=== PATIENT | male | born 1945 | race Caucasian/White ===

== ENCOUNTER → 2016-12-12 | Outpatient (CLI) | payer MEDICARE ==
[~2016-12-12] MED LIST: ACET30TAB PO; LOSA50TA21 PO; MULT1TAB9 PO; TYLE500T78 PO
== END ==
LOC: M ONCR 13:09
PROVIDERS: ATTEND Radiology Radiation Oncology
DX: C02.9 Malignant neoplasm of tongue, unspecified (principal)

== ENCOUNTER 2016-12-25 08:27 | Outpatient (RCR) | payer MEDICARE ==
--- NOTE | 2017-01-09 09:14 | RADONC ---
RADIATION ONCOLOGY PROGRESS NOTE DATE: 01/07/2017 CHART NUMBER: [id number] Mr. Schroeder is presently at a dose of 800 cGy to his oral tongue and is tolerating treatments quite well at this point with no complaints related to his radiation therapy. He is having no difficulty swallowing or discomfort. REVIEW OF SYSTEMS: The patient's review of systems is noncontributory. He denies nausea, vomiting, fevers, chills, night sweats, diplopia, headaches, anxiety or depression, anorexia, weight loss, visual disturbances, chest pain, urinary or bowel difficulties, bone pain or neurological problems. PHYSICAL EXAMINATION: The patient's skin is in good condition with no evidence of radiation change present. His oral cavity shows no evidence of mucositis. The remainder of his physical exam remains unchanged. Mr. Schroeder she is tolerating treatments quite well and radiation will continue as scheduled.
--- NOTE | 2017-01-14 11:49 | RADONC ---
RADIATION ONCOLOGY PROGRESS NOTE DATE: 01/14/2017 CHART NUMBER: [id number] Mr. Schroeder is presently at a dose of 1800 cGy to his head and neck and is tolerating treatments fairly well at this point with no significant difficulties related to his radiation therapy other than some discomfort in the oral cavity. REVIEW OF SYSTEMS: The patient's review of systems is positive for some sensitivity of his oral cavity but is otherwise noncontributory. The patient's review of systems is noncontributory. Denies nausea, vomiting, fevers, chills, night sweats, diplopia, headaches, anxiety or depression, anorexia, weight loss, visual disturbances, chest pain, urinary or bowel difficulties, bone pain, or neurological problems. PHYSICAL EXAMINATION: The patient's skin is in excellent condition with no evidence of radiation change present. There is no moist or dry desquamation. His oral cavity is beginning to show some mild mucositis. His weight today, however is up to 176.8 pounds from 174.2 pounds 1 week ago. The remainder of his physical exam remains unchanged. Mr. Schroeder is tolerating treatments quite well and radiation will continue as scheduled.
== END 2017-01-15 ==
LOC: M ONCR 08:27
PROVIDERS: ATTEND Radiology Radiation Oncology
DX: C77.0 Secondary and unspecified malignant neoplasm of lymph nodes of head, face and neck (principal); C02.1 Malignant neoplasm of border of tongue

== ENCOUNTER → 2016-12-25 | Outpatient (CLI) | payer MEDICARE ==
--- NOTE | 2016-12-27 08:17 | RADONC ---
RADIATION ONCOLOGY SIMULATION NOTE DATE: 12/25/2016 CHART NUMBER: [id number]. Mr. Schroeder was taken to the CT scan for CT simulation of his head and neck field. CT was accomplished without difficulty or discomfort. Radiation treatment planning is underway and radiation treatments will begin subsequently. An immobilization device, including a mask, was created without difficulty or discomfort. It will be utilized throughout the course of treatment. I was physically present throughout the course of CT simulation. The patient has had an abscess and is presently on clindamycin antibiotics for the last 7 days. He has another week of antibiotics to go. We will reevaluate him prior to initiation of actual treatment.
== END ==
LOC: M RAD 08:09
PROVIDERS: ATTEND Radiology Radiation Oncology
DX: C77.0 Secondary and unspecified malignant neoplasm of lymph nodes of head, face and neck (principal); C02.1 Malignant neoplasm of border of tongue

== ENCOUNTER 2017-01-16 14:26 | Outpatient (RCR) | payer MEDICARE ==
--- NOTE | 2017-01-22 09:23 | RADONC ---
RADIATION ONCOLOGY PROGRESS NOTE DATE: 01/21/2017 CHART NUMBER: [id number]. Mr. Schroeder is presently at a dose of 2600 cGy to his oral cavity and is tolerating treatments quite well at this point with no significant difficulties related to his radiation therapy other than some discomfort in the oral cavity. REVIEW OF SYSTEMS: The patient's review of systems is positive for some oral cavity discomfort but is otherwise largely noncontributory. He denies nausea, vomiting, fevers, chills, night sweats, diplopia, headaches, anxiety or depression, anorexia, weight loss, visual disturbances, chest pain, urinary or bowel difficulties, bone pain or neurological problems. PHYSICAL EXAMINATION: The patient's oral cavity shows some mild mucositis present, but overall is in good condition. There is no evidence of nodularity or ulceration. The remainder of his physical exam remains unchanged. The patient is tolerating treatments quite well and radiation will continue as scheduled.
--- NOTE | 2017-01-28 12:42 | RADONC ---
RADIATION ONCOLOGY PROGRESS NOTE DATE: 01/28/2017 CHART NUMBER: [id number]. Mr. Schroeder is presently at a dose of 3600 cGy to his oral tongue and is tolerating treatments quite well at this point with no significant difficulties related to his radiation therapy. The patient is complaining today of flu like symptoms including fevers, chills, coughing, diarrhea, abdominal discomfort, some nausea. He does also have some oral cavity discomfort from radiation. REVIEW OF SYSTEMS: The patient's review of systems is positive for multiple flu-like symptoms including those listed above. It is otherwise noncontributory. He denies nausea, vomiting, fevers, chills, night sweats, diplopia, headaches, anxiety or depression, anorexia, weight loss, visual disturbances, chest pain, urinary or bowel difficulties, bone pain or neurological problems. PHYSICAL EXAMINATION: The patient's oral cavity shows some mild mucositis present. There is no evidence of moist or dry desquamation of the patient's skin region. The remainder of his physical exam remains unchanged. Mr. Schroeder is tolerating radiation quite well. Radiation will continue. I let him know that if he is feeling sick, he may stay home for a couple of days, if necessary, and it should not affect the treatment significantly.
--- NOTE | 2017-02-05 08:15 | RADONC ---
RADIATION ONCOLOGY PROGRESS NOTE DATE: 02/04/2017 CHART NUMBER: [id number]. PROGRESS NOTE: Mr. Schroeder is presently at a dose of 4600 cGy to his oral cavity and is tolerating treatments remarkably well with no significant difficulties related to his radiation therapy other than some change of taste and tenderness upon swallowing. He has been able to maintain his weight even without a feeding tube. REVIEW OF SYSTEMS: The patient's review of systems is positive for difference in his taste sensation as well as some discomfort upon swallowing, but is otherwise noncontributory. Denies nausea, vomiting, fevers, chills, night sweats, diplopia, headaches, anxiety or depression, anorexia, weight loss, visual disturbances, chest pain, urinary or bowel difficulties, bone pain, or neurological problems. PHYSICAL EXAMINATION: The patient's weight today is 173.2 pounds, down just 4/10 of a pound in the past week. His oral cavity shows some mild mucositis. The skin shows some tanning and erythema present but overall is in good condition with no evidence of moist or dry desquamation. The remainder of the physical exam remains unchanged. Mr. Schroeder is tolerating treatments quite well and radiation will continue as scheduled.
--- NOTE | 2017-02-11 10:56 | RADONC ---
RADIATION ONCOLOGY PROGRESS NOTE: DATE: 02/11/2017 CHART NO: [id number] Mr. Schroeder is presently at a dose of 5000 cGy to his head and neck and is tolerating treatments quite well at this point with no significant difficulties related to his radiation therapy other than some tenderness of the skin and the oral cavity. REVIEW OF SYSTEMS: The patient's review of systems is positive for some skin tenderness in oral cavity tenderness but is otherwise noncontributory. He denies nausea, vomiting, fevers, chills, night sweats, diplopia, headaches, anxiety or depression, anorexia, weight loss, visual disturbances, chest pain, urinary or bowel difficulties, bone pain, or neurological problems. PHYSICAL EXAMINATION: The patient is doing quite well at this point. The skin over the treated field shows some erythema and tanning present but overall is in good condition with no evidence of moist or dry desquamation. The oral cavity is in excellent condition with just some mild mucositis. He is weight today is 171.6 pounds. That is down a total of 1-1/2 pounds since last week but is actually up 4.6 pounds since the time of consultation. His is encouraging him to continue to eat and indeed he has been swallowing. The remainder of his physical exam remains unchanged. Mr. Schroeder is tolerating treatments quite well and radiation will continue as scheduled.
== END 2017-02-15 ==
LOC: M ONCR 14:26
PROVIDERS: ATTEND Radiology Radiation Oncology
DX: C02.1 Malignant neoplasm of border of tongue (principal); C77.0 Secondary and unspecified malignant neoplasm of lymph nodes of head, face and neck

== ENCOUNTER 2017-02-18 08:48 | Outpatient (RCR) | payer MEDICARE ==
--- NOTE | 2017-02-18 15:44 | RADONC ---
RADIATION ONCOLOGY PROGRESS NOTE DATE: 02/18/2017 CHART NUMBER: [id number] Mr. Schroeder is presently at a dose of 6000 cGy to his head and neck and is tolerating treatments remarkably well at this point with no significant difficulties related to his radiation therapy. The patient is swallowing. He has some change in his taste sensation. He is having no significant discomfort. The patient's review of systems is positive for taste sensation changes but is otherwise largely noncontributory. He denies nausea, vomiting, fevers, chills, night sweats, diplopia, headaches, anxiety or depression, anorexia, weight loss, visual disturbances, chest pain, urinary or bowel difficulties, bone pain, or neurological problems. PHYSICAL EXAMINATION: The patient's skin is in good condition with no evidence of moist or dry desquamation. The patient's oral cavity shows some mild mucositis. His weight today is 171.4 pounds still up for 1/2 pound since time of consultation and stable since last week. The remainder of his physical exam remains unchanged. Mr. Schroeder is tolerating treatments quite well and radiation will continue as scheduled.
--- NOTE | 2017-02-21 12:14 | RADONC ---
RADIATION ONCOLOGY TREATMENT SUMMARY DATE: 02/21/2017 CHART NUMBER: [id number] DIAGNOSIS: Oral tongue cancer. STAGE: UZIEL, [id number]. ECOG PERFORMANCE STATUS: 1 TREATMENT SUMMARY: Mr. 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 We treated the patient to his oral tongue for a total dose of 6660 cGy delivered in 33 fractions of 200 cGy each over 47 elapsed days from 01/02/2017 through 02/18/2017. The patient's oral tongue was treated on the linear accelerator utilizing a 6 MV photon beam via IMRT/IGRT. The left neck received a total dose of 6000 cGy delivered in 30 fractions of 200 cGy each, and the right noninvolved neck received a dose of 5000 cGy delivered in 25 fractions of 200 cGy each. All treatments were delivered via IMRT/IGRT. Mr. Schroeder tolerated his treatments exceedingly well. He was able to maintain his weight and, indeed, gained weight from time of consultation while on radiation treatments. He did not have a feeding tube placed. Once again, without a feeding tube, the patient gained a total of 4.5 pounds throughout the course of therapy. He was able to complete radiation as prescribed without interruption. I have scheduled the patient to see me again in 1 month for further followup. He will also continue to be followed by his other physicians as well. He is scheduled for monthly examination by Dr. Correa. cc: Jet Valiente, DO Erik Forte MD
== END 2017-03-17 ==
LOC: M ONCR 08:48
PROVIDERS: ATTEND Radiology Radiation Oncology
DX: C02.1 Malignant neoplasm of border of tongue (principal); C77.0 Secondary and unspecified malignant neoplasm of lymph nodes of head, face and neck

== ENCOUNTER → 2017-03-27 | Outpatient (CLI) | payer MEDICARE ==
--- NOTE | 2017-03-29 06:23 | RADONC ---
RADIATION ONCOLOGY FOLLOWUP NOTE DATE: 03/27/2017 CHART NUMBER: [id number]. DIAGNOSIS: Oral tongue cancer. STAGE: UZIEL, [id number]. ECOG PERFORMANCE STATUS: Zero. FOLLOWUP NOTE: Mr. 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 The patient presents today reporting that he is doing exceedingly well with no complaints at this time related to his radiation therapy or disease. He is having no mouth pain. He has no pain upon swallowing. REVIEW OF SYSTEMS: The patient's review of systems is noncontributory. Denies nausea, vomiting, fevers, chills, night sweats, diplopia, headaches, anxiety or depression, anorexia, weight loss, visual disturbances, chest pain, urinary or bowel difficulties, bone pain, or neurological problems. PHYSICAL EXAMINATION: The patients is a well-developed, well-nourished, white male in no acute distress. HEENT exam is normocephalic, atraumatic. Extraocular movements are intact. Oral cavity examination reveals no lesions, nodularity, evidence of residual or recurrent disease. There is no palpable cervical, supraclavicular, infraclavicular, axillary or inguinal lymphadenopathy present. His lungs are clear to auscultation and percussion. ASSESSMENT: The patient is clinically SHAILESH at this time. He is being seen by Dr. Correa every 4 weeks for laryngoscopic evaluation and full oral cavity examination. He is also being seen by Dr. Trevino on a monthly basis. He has just seen Dr. Correa, who reported no evidence of recurrent disease either. In light of the fact that he is being followed so closely by his head and neck physician, I have discharged him from our followup except on an as needed basis. cc: SANDRA Looney DO Norman Weir, MD
== END ==
LOC: M ONCR 11:05
PROVIDERS: ATTEND Radiology Radiation Oncology
DX: C02.1 Malignant neoplasm of border of tongue (principal); C77.0 Secondary and unspecified malignant neoplasm of lymph nodes of head, face and neck

== ENCOUNTER → 2017-06-25 | Outpatient (REF) | payer MEDICARE ==
[~2017-06-25] MED LIST changes: -LOSA50TA21 PO; +LOSA50TA5 PO
[2017-06-25 21:19] LABS: MEAN CORPUSCULAR HEMOGLOBIN 33.5 pg (27.0-33.0); MEAN CORPUSCULAR HGB CONC 34.8 g/dl (32.0-36.5); MEAN CORPUSCULAR VOLUME 96.2 fl (80.0-96.0); RED CELL DISTRIBUTION WIDTH 12.4 % (11.5-14.5); WHITE BLOOD COUNT 3.7 K/mm3 (4.0-10.0)
[2017-06-25 21:53] LABS: ALBUMIN 3.9 GM/DL (3.2-5.2); ALKALINE PHOSPHATASE 73 U/L (45-117); ALT/SGPT 25 U/L (12-78); ANION GAP 6 MEQ/L (8-16); AST/SGOT 19 U/L (15-37); BILIRUBIN,TOTAL 0.6 MG/DL (0.2-1.0); BLOOD UREA NITROGEN 35 MG/DL (7-18); CARBON DIOXIDE LEVEL 29 MEQ/L (21-32); CHLORIDE LEVEL 103 MEQ/L (98-107); CREATININE FOR GFR 1.53 MG/DL (0.70-1.30); GLOMERULAR FILTRATION RATE 47.7 (>42); GLUCOSE, FASTING 79 MG/DL (83-110); POTASSIUM SERUM 3.9 MEQ/L (3.5-5.1); SODIUM LEVEL 138 MEQ/L (136-145); TOTAL PROTEIN 6.9 GM/DL (6.4-8.2)
== END ==
LOC: M LAB REF 17:38
PROVIDERS: ATTEND Surgery
DX: M27.2 Inflammatory conditions of jaws (principal); I10 Essential (primary) hypertension; Z79.899 Other long term (current) drug therapy

== ENCOUNTER → 2017-07-02 | Outpatient (REF) | payer MEDICARE | LOC: M LAB REF 16:06 | PROVIDERS: ATTEND Surgery | DX: M86.10 Other acute osteomyelitis, unspecified site (principal) ==

== ENCOUNTER 2018-01-29 08:16 | Outpatient (RCR) | payer MEDICARE | END 2018-02-15 | LOC: M PT 08:16 | DX: Z51.89 Encounter for other specified aftercare (principal); I89.0 Lymphedema, not elsewhere classified | CPT/HCPCS: 97140 ==

== ENCOUNTER 2018-02-20 09:03 | Outpatient (RCR) | payer MEDICARE | END 2018-03-17 | LOC: M PT 09:03 | DX: Z51.89 Encounter for other specified aftercare (principal); I89.0 Lymphedema, not elsewhere classified | CPT/HCPCS: 97140 ==

== ENCOUNTER → 2018-04-04 | Outpatient (CLI) | payer MEDICARE ==
[~2018-04-04] MED LIST changes: -ACET30TAB PO; +ISOVUE-370 76% 100ML VIAL (Q9967) As Ordered; -LOSA50TA5 PO; -MULT1TAB9 PO; -TYLE500T78 PO
== END ==
LOC: M RAD 13:10
DX: C02.2 Malignant neoplasm of ventral surface of tongue (principal)
CPT/HCPCS: Q9967

== ENCOUNTER → 2018-04-29 | Day surgery (SDC) | payer MEDICARE ==
[~2018-04-29] MED LIST changes: +GLYCOPYRROLATE INJ 0.2 MG/ML 2 ML VIAL As Ordered; -ISOVUE-370 76% 100ML VIAL (Q9967) As Ordered; +LR 1,000 ML IV; +MIDAZOLAM INJ 2 MG/2 ML VIAL (J2250) As Ordered; +ONDANSETRON 4MG/2ML VIAL (J2405) IV; +PROPOFOL 200 MG/20 ML VIAL As Ordered; +ROCURONIUM BROMIDE 50 MG/5 ML VIAL As Ordered; +SUCCINYLCHOLINE 100 MG/5 ML SYRINGE (J0330) As Ordered; +SUGAMMADEX SODIUM 500 MG/5 ML VIAL (BRIDION) As Ordered; +dexameTHASONE 4 MG/ML 1ML VIAL (J1100) As Ordered; +fentaNYL 100 MCG/2 ML INJECTION (J3010) As Ordered; +fentaNYL 100 MCG/2 ML INJECTION (J3010) IV
[2018-04-29 08:20] LABS: ANION GAP 8 MEQ/L (8-16); BLOOD UREA NITROGEN 42 MG/DL (7-18); CALCIUM LEVEL 9.3 MG/DL (8.8-10.2); CARBON DIOXIDE LEVEL 30 MEQ/L (21-32); CHLORIDE LEVEL 99 MEQ/L (98-107); CREATININE FOR GFR 1.64 MG/DL (0.70-1.30); GLOMERULAR FILTRATION RATE 43.9 (>42); GLUCOSE, FASTING 95 MG/DL (70-100); POTASSIUM SERUM 3.8 MEQ/L (3.5-5.1); SODIUM LEVEL 137 MEQ/L (136-145)
[2018-04-29] MEDS: CETACAINE SPRAY 5GM As Ordered (09:20)
[2018-04-29] MEDS: fentaNYL 100 MCG/2 ML INJECTION (J3010) IV ×4 (10:02→10:19)
[2018-04-29] MEDS: NORCO, ANEXSIA 5/325MG TABLET (HYDROcodone/ACETAMINOPHEN) PO ×2 (11:15→11:59)
== END | disposition home or self-care (01) ==
LOC: M SDC 07:34
DX: C02.2 Malignant neoplasm of ventral surface of tongue (principal); I12.9 Hypertensive chronic kidney disease with stage 1 through stage 4 chronic kidney disease, or unspecified chronic kidney disease; N18.3 Chronic kidney disease, stage 3 (moderate); F17.211 Nicotine dependence, cigarettes, in remission; Z79.899 Other long term (current) drug therapy; Z92.3 Personal history of irradiation; Z88.8 Allergy status to other drugs, medicaments and biological substances
CPT/HCPCS: 31536

== ENCOUNTER → 2018-05-06 | Outpatient (REF) | payer MEDICARE | LOC: M LAB REF 12:47 | DX: M79.2 Neuralgia and neuritis, unspecified (principal); B37.89 Other sites of candidiasis | CPT/HCPCS: 87070 ==

== ENCOUNTER 2018-05-31 04:09 | Inpatient (IN) | payer MEDICARE ==
[2018-05-31 04:46] LABS: BASO % 0.2 % (0.0-1.0); EOS # 0.1 10^3/uL (0.0-0.50); EOS % 0.6 % (0.0-3.0); HEMATOCRIT 32.9 % (42.0-52.0); HEMOGLOBIN 11.1 g/dl (13.5-17.5); LYMPH # 0.9 10^3/uL (1.5-4.5); LYMPH % 9.9 % (24.0-44.0); MEAN CORPUSCULAR HEMOGLOBIN 31.6 pg (27.0-33.0); MEAN CORPUSCULAR HGB CONC 33.7 g/dl (32.0-36.5); MEAN CORPUSCULAR VOLUME 93.7 fl (80.0-96.0); MONO # 0.6 10^3/uL (0.0-0.8); MONO % 7.4 % (0.0-5.0); NEUTROPHILS # 6.9 10^3/uL (1.8-7.7); NEUTROPHILS % 79.9 % (36.0-66.0); PLATELET COUNT, AUTOMATED 243 10^3/uL (150-450); RED BLOOD COUNT 3.51 10^6/uL (4.30-6.10); RED CELL DISTRIBUTION WIDTH 13.1 % (11.5-14.5); WHITE BLOOD COUNT 8.6 10^3/uL (4.0-10.0)
[2018-05-31 05:06] LABS: ANION GAP 8 MEQ/L (8-16); BLOOD UREA NITROGEN 31 MG/DL (7-18); CALCIUM LEVEL 8.3 MG/DL (8.8-10.2); CARBON DIOXIDE LEVEL 26 MEQ/L (21-32); CHLORIDE LEVEL 106 MEQ/L (98-107); CREATININE FOR GFR 1.07 MG/DL (0.70-1.30); GLOMERULAR FILTRATION RATE > 60.0 (>42); GLUCOSE, FASTING 86 MG/DL (70-100); SODIUM LEVEL 140 MEQ/L (136-145)
[2018-05-31] MEDS ORDERED: ISOVUE-370 76% 100ML VIAL (Q9967) As Ordered (05:20)
[2018-05-31] MEDS: ONDANSETRON 4MG/2ML VIAL (J2405) IV (05:30)
[2018-05-31] MEDS: MORPHINE 4 MG/ML 1ML VIAL/SYRINGE (J2270) IV ×2 (05:38→07:19)
[2018-05-31] MEDS ORDERED: DEXTROSE 50% 50 ML SYRINGE IV (07:15)
[2018-05-31] MEDS ORDERED: GLUCAGON FOR INJ 1 MG VIAL (J1610) SC (07:15)
[2018-05-31] MEDS ORDERED: GLUCOSE 4 GM CHEW TABLET PO (07:15)
[2018-05-31] MEDS ORDERED: ACETAMINOPHEN TAB 650MG DOSE (2X325MG) PO (07:15)
[2018-05-31] MEDS: dexameTHASONE 20 MG/5 ML VIAL (J1100) IV ×3 (08:01→17:08)
[2018-05-31] MEDS: AMPICILLIN SOD/SULBACTAM SOD 3 GM in D5W MINI-BAG PLUS 100 ML IV ×4 (08:01→22:13)
[2018-05-31] MEDS: NS 1,000 ML IV (08:02)
[2018-05-31] MEDS: PANTOPRAZOLE 40MG INJ (PROTONIX) (C9113) IV (10:47)
[2018-05-31] MEDS: ENOXAPARIN 40 MG/0.4 ML SYRINGE (J1650) SC (10:47)
[2018-05-31 18:18] LABS: BEDSIDE GLUCOSE 133 MG/DL (83-110)
[2018-06-01] MEDS: dexameTHASONE 20 MG/5 ML VIAL (J1100) IV ×4 (00:56→17:12)
[2018-06-01 00:57] LABS: BEDSIDE GLUCOSE 136 MG/DL (83-110)
[2018-06-01 04:46] LABS: HEMATOCRIT 32.2 % (42.0-52.0); MEAN CORPUSCULAR HEMOGLOBIN 31.2 pg (27.0-33.0); MEAN CORPUSCULAR HGB CONC 34.2 g/dl (32.0-36.5); MEAN CORPUSCULAR VOLUME 91.2 fl (80.0-96.0); PLATELET COUNT, AUTOMATED 246 10^3/uL (150-450); RED BLOOD COUNT 3.53 10^6/uL (4.30-6.10); RED CELL DISTRIBUTION WIDTH 13.1 % (11.5-14.5); WHITE BLOOD COUNT 8.2 10^3/uL (4.0-10.0)
[2018-06-01 05:03] LABS: ANION GAP 7 MEQ/L (8-16); BLOOD UREA NITROGEN 28 MG/DL (7-18); CALCIUM LEVEL 8.3 MG/DL (8.8-10.2); CARBON DIOXIDE LEVEL 27 MEQ/L (21-32); CHLORIDE LEVEL 103 MEQ/L (98-107); GLOMERULAR FILTRATION RATE > 60.0 (>42); GLUCOSE, FASTING 112 MG/DL (70-100); POTASSIUM SERUM 4.4 MEQ/L (3.5-5.1); SODIUM LEVEL 137 MEQ/L (136-145)
[2018-06-01] MEDS: NS 1,000 ML IV (05:56)
[2018-06-01] MEDS: AMPICILLIN SOD/SULBACTAM SOD 3 GM in D5W MINI-BAG PLUS 100 ML IV ×4 (05:56→21:48)
[2018-06-01] MEDS ORDERED: ACETAMINOPHEN 325 MG/10.15 ML UDC GT (08:45)
[2018-06-01] MEDS ORDERED: LIDOCAINE VISCOUS 2% SOLN 15ML UDC SS (08:45)
[2018-06-01] MEDS: PANTOPRAZOLE 40MG INJ (PROTONIX) (C9113) IV (09:02)
[2018-06-01] MEDS: ENOXAPARIN 40 MG/0.4 ML SYRINGE (J1650) SC (09:03)
[2018-06-01] MEDS: NORCO, ANEXSIA 5/325MG TABLET (HYDROcodone/ACETAMINOPHEN) PO ×4 (09:03→23:15)
[2018-06-01] MEDS: LIDOCAINE VISCOUS 2% SOLN 15ML UDC PO (09:18)
[2018-06-01] MEDS: METOCLOPRAMIDE INJ 10MG/2ML VIAL (J2765) IV (11:03)
[2018-06-01] MEDS: MIRALAX *UNIT DOSE* 17GM PACKET PO (11:10)
[2018-06-01] MEDS: ALPRAZolam 0.25 MG TAB PO ×2 (11:35→21:49)
[2018-06-01 12:26] LABS: BEDSIDE GLUCOSE 143 MG/DL (83-110)
[2018-06-01 17:21] LABS: BEDSIDE GLUCOSE 121 MG/DL (83-110)
[2018-06-02] MEDS: dexameTHASONE 20 MG/5 ML VIAL (J1100) IV ×4 (00:14→18:21)
[2018-06-02 00:19] LABS: BEDSIDE GLUCOSE 125 MG/DL (83-110)
[2018-06-02] MEDS: AMPICILLIN SOD/SULBACTAM SOD 3 GM in D5W MINI-BAG PLUS 100 ML IV ×4 (03:21→21:56)
[2018-06-02 04:39] LABS: HEMATOCRIT 30.4 % (42.0-52.0); HEMOGLOBIN 10.5 g/dl (13.5-17.5); MEAN CORPUSCULAR HEMOGLOBIN 31.6 pg (27.0-33.0); MEAN CORPUSCULAR HGB CONC 34.5 g/dl (32.0-36.5); MEAN CORPUSCULAR VOLUME 91.6 fl (80.0-96.0); PLATELET COUNT, AUTOMATED 241 10^3/uL (150-450); RED BLOOD COUNT 3.32 10^6/uL (4.30-6.10); RED CELL DISTRIBUTION WIDTH 13.3 % (11.5-14.5)
[2018-06-02 04:53] LABS: ANION GAP 8 MEQ/L (8-16); BLOOD UREA NITROGEN 38 MG/DL (7-18); CALCIUM LEVEL 7.7 MG/DL (8.8-10.2); CARBON DIOXIDE LEVEL 27 MEQ/L (21-32); CHLORIDE LEVEL 105 MEQ/L (98-107); CREATININE FOR GFR 1.11 MG/DL (0.70-1.30); GLOMERULAR FILTRATION RATE > 60.0 (>42); GLUCOSE, FASTING 138 MG/DL (70-100); POTASSIUM SERUM 4.2 MEQ/L (3.5-5.1); SODIUM LEVEL 140 MEQ/L (136-145)
[2018-06-02] MEDS: MIRALAX *UNIT DOSE* 17GM PACKET PO (08:41)
[2018-06-02] MEDS: ENOXAPARIN 40 MG/0.4 ML SYRINGE (J1650) SC (08:41)
[2018-06-02] MEDS: PANTOPRAZOLE 40MG INJ (PROTONIX) (C9113) IV (08:41)
[2018-06-02 13:04] LABS: BEDSIDE GLUCOSE 168 MG/DL (83-110)
[2018-06-02] MEDS: ALPRAZolam 0.25 MG TAB PO ×2 (13:27→21:55)
[2018-06-02] MEDS: NORCO, ANEXSIA 5/325MG TABLET (HYDROcodone/ACETAMINOPHEN) PO ×2 (14:56→21:56)
[2018-06-02 18:33] LABS: BEDSIDE GLUCOSE 150 MG/DL (83-110)
[2018-06-03] MEDS: dexameTHASONE 20 MG/5 ML VIAL (J1100) IV ×4 (00:29→17:17)
[2018-06-03 03:29] LABS: BEDSIDE GLUCOSE 111 MG/DL (83-110)
[2018-06-03 04:45] LABS: HEMATOCRIT 31.3 % (42.0-52.0); HEMOGLOBIN 10.8 g/dl (13.5-17.5); MEAN CORPUSCULAR HGB CONC 34.5 g/dl (32.0-36.5); MEAN CORPUSCULAR VOLUME 92.6 fl (80.0-96.0); PLATELET COUNT, AUTOMATED 246 10^3/uL (150-450); RED BLOOD COUNT 3.38 10^6/uL (4.30-6.10); RED CELL DISTRIBUTION WIDTH 13.5 % (11.5-14.5); WHITE BLOOD COUNT 11.7 10^3/uL (4.0-10.0)
[2018-06-03 05:00] LABS: ANION GAP 6 MEQ/L (8-16); BLOOD UREA NITROGEN 43 MG/DL (7-18); CARBON DIOXIDE LEVEL 30 MEQ/L (21-32); CHLORIDE LEVEL 105 MEQ/L (98-107); CREATININE FOR GFR 1.18 MG/DL (0.70-1.30); GLOMERULAR FILTRATION RATE > 60.0 (>42); GLUCOSE, FASTING 115 MG/DL (70-100); POTASSIUM SERUM 4.4 MEQ/L (3.5-5.1); SODIUM LEVEL 141 MEQ/L (136-145)
[2018-06-03] MEDS: AMPICILLIN SOD/SULBACTAM SOD 3 GM in D5W MINI-BAG PLUS 100 ML IV ×4 (05:08→21:29)
[2018-06-03] MEDS: ENOXAPARIN 40 MG/0.4 ML SYRINGE (J1650) SC (08:08)
[2018-06-03] MEDS: PANTOPRAZOLE 40MG INJ (PROTONIX) (C9113) IV (08:08)
[2018-06-03] MEDS: MIRALAX *UNIT DOSE* 17GM PACKET PO (08:09)
[2018-06-03] MEDS: NORCO, ANEXSIA 5/325MG TABLET (HYDROcodone/ACETAMINOPHEN) PO ×2 (08:09→21:30)
[2018-06-03] MEDS: SENNA 8.6 MG TAB (SENOKOT) PO (09:42)
[2018-06-03] MEDS: DRONABINOL 2.5 MG CAP (MARINOL) PO ×3 (11:59→21:28)
[2018-06-03 13:35] LABS: BEDSIDE GLUCOSE 177 MG/DL (83-110)
[2018-06-03 17:30] LABS: BEDSIDE GLUCOSE 140 MG/DL (83-110)
[2018-06-04 05:01] LABS: HEMATOCRIT 32.4 % (42.0-52.0); HEMOGLOBIN 10.9 g/dl (13.5-17.5); MEAN CORPUSCULAR HEMOGLOBIN 31.6 pg (27.0-33.0); MEAN CORPUSCULAR HGB CONC 33.6 g/dl (32.0-36.5); MEAN CORPUSCULAR VOLUME 93.9 fl (80.0-96.0); PLATELET COUNT, AUTOMATED 233 10^3/uL (150-450); RED BLOOD COUNT 3.45 10^6/uL (4.30-6.10); RED CELL DISTRIBUTION WIDTH 13.7 % (11.5-14.5); WHITE BLOOD COUNT 10.9 10^3/uL (4.0-10.0)
[2018-06-04 05:16] LABS: ANION GAP 4 MEQ/L (8-16); BLOOD UREA NITROGEN 42 MG/DL (7-18); C REACTIVE PROTEIN QUANTITATIV 0.33 MG/DL (0.00-0.30); CALCIUM LEVEL 8.1 MG/DL (8.8-10.2); CARBON DIOXIDE LEVEL 31 MEQ/L (21-32); CHLORIDE LEVEL 106 MEQ/L (98-107); CREATININE FOR GFR 1.15 MG/DL (0.70-1.30); GLOMERULAR FILTRATION RATE > 60.0 (>42); GLUCOSE, FASTING 93 MG/DL (70-100); POTASSIUM SERUM 4.2 MEQ/L (3.5-5.1); SODIUM LEVEL 141 MEQ/L (136-145)
[2018-06-04] MEDS: AMPICILLIN SOD/SULBACTAM SOD 3 GM in D5W MINI-BAG PLUS 100 ML IV ×4 (05:35→21:00)
[2018-06-04] MEDS: dexameTHASONE 20 MG/5 ML VIAL (J1100) IV ×2 (05:35→17:30)
[2018-06-04] MEDS: ENOXAPARIN 40 MG/0.4 ML SYRINGE (J1650) SC (08:12)
[2018-06-04] MEDS: DRONABINOL 2.5 MG CAP (MARINOL) PO ×4 (08:12→20:55)
[2018-06-04] MEDS: PANTOPRAZOLE 40MG INJ (PROTONIX) (C9113) IV (08:12)
[2018-06-04] MEDS: MIRALAX *UNIT DOSE* 17GM PACKET PO (08:12)
[2018-06-04] MEDS: ALPRAZolam 0.25 MG TAB PO ×2 (16:35→20:55)
[2018-06-04] MEDS: NORCO, ANEXSIA 5/325MG TABLET (HYDROcodone/ACETAMINOPHEN) PO (20:56)
[2018-06-05] MEDS: AMPICILLIN SOD/SULBACTAM SOD 3 GM in D5W MINI-BAG PLUS 100 ML IV (04:25)
[2018-06-05 05:07] LABS: HEMATOCRIT 30.2 % (42.0-52.0); HEMOGLOBIN 10.3 g/dl (13.5-17.5); MEAN CORPUSCULAR HEMOGLOBIN 31.4 pg (27.0-33.0); MEAN CORPUSCULAR HGB CONC 34.1 g/dl (32.0-36.5); MEAN CORPUSCULAR VOLUME 92.1 fl (80.0-96.0); PLATELET COUNT, AUTOMATED 224 10^3/uL (150-450); RED BLOOD COUNT 3.28 10^6/uL (4.30-6.10); RED CELL DISTRIBUTION WIDTH 13.7 % (11.5-14.5); WHITE BLOOD COUNT 9.3 10^3/uL (4.0-10.0)
[2018-06-05 05:23] LABS: ANION GAP 4 MEQ/L (8-16); BLOOD UREA NITROGEN 40 MG/DL (7-18); C REACTIVE PROTEIN QUANTITATIV < 0.30 MG/DL (0.00-0.30); CALCIUM LEVEL 7.9 MG/DL (8.8-10.2); CARBON DIOXIDE LEVEL 28 MEQ/L (21-32); CHLORIDE LEVEL 108 MEQ/L (98-107); GLOMERULAR FILTRATION RATE > 60.0 (>42); GLUCOSE, FASTING 101 MG/DL (70-100); POTASSIUM SERUM 4.3 MEQ/L (3.5-5.1); SODIUM LEVEL 140 MEQ/L (136-145)
[2018-06-05 05:26] LABS: ESTIMATED AVERAGE GLUCOSE 111 MG/DL (60-110); HEMOGLOBIN A1c 5.5 %
[2018-06-05] MEDS: dexameTHASONE 20 MG/5 ML VIAL (J1100) IV (06:00)
== END 2018-06-05 06:45 | disposition short-term general hospital (02) | DRG 155 ==
LOC: M ED 04:09 → M ED INP 07:09 → M ICU 13:05
DX: K11.22 Acute recurrent sialoadenitis (principal); E46 Unspecified protein-calorie malnutrition; L03.211 Cellulitis of face; L03.221 Cellulitis of neck; F41.9 Anxiety disorder, unspecified; Z85.810 Personal history of malignant neoplasm of tongue; Z92.21 Personal history of antineoplastic chemotherapy; Z92.3 Personal history of irradiation; D63.8 Anemia in other chronic diseases classified elsewhere; K21.9 Gastro-esophageal reflux disease without esophagitis; Z87.891 Personal history of nicotine dependence; Z79.899 Other long term (current) drug therapy; Z88.8 Allergy status to other drugs, medicaments and biological substances; Z68.21 Body mass index [BMI] 21.0-21.9, adult

== ENCOUNTER 2018-06-07 17:41 | Inpatient (IN) | payer MEDICARE ==
[~2018-06-07 17:41] MED LIST changes: +ACETAMINOPHEN 325 MG/10.15 ML UDC GT; -GLYCOPYRROLATE INJ 0.2 MG/ML 2 ML VIAL As Ordered; +LIDOCAINE VISCOUS 2% SOLN 15ML UDC SS; -LR 1,000 ML IV; +METOCLOPRAMIDE INJ 10MG/2ML VIAL (J2765) IV; -MIDAZOLAM INJ 2 MG/2 ML VIAL (J2250) As Ordered; -PROPOFOL 200 MG/20 ML VIAL As Ordered; -ROCURONIUM BROMIDE 50 MG/5 ML VIAL As Ordered; -SUCCINYLCHOLINE 100 MG/5 ML SYRINGE (J0330) As Ordered; -SUGAMMADEX SODIUM 500 MG/5 ML VIAL (BRIDION) As Ordered; -dexameTHASONE 4 MG/ML 1ML VIAL (J1100) As Ordered; -fentaNYL 100 MCG/2 ML INJECTION (J3010) As Ordered; -fentaNYL 100 MCG/2 ML INJECTION (J3010) IV
[2018-06-07] MEDS: DRONABINOL 2.5 MG CAP (MARINOL) PEG (18:00)
[2018-06-07 18:28] LABS: BASO % 0.1 % (0.0-1.0); HEMATOCRIT 33.4 % (42.0-52.0); HEMOGLOBIN 11.4 g/dl (13.5-17.5); LYMPH # 0.3 10^3/uL (1.5-4.5); LYMPH % 2.2 % (24.0-44.0); MEAN CORPUSCULAR HEMOGLOBIN 32.3 pg (27.0-33.0); MEAN CORPUSCULAR HGB CONC 34.1 g/dl (32.0-36.5); MEAN CORPUSCULAR VOLUME 94.6 fl (80.0-96.0); MONO # 0.5 10^3/uL (0.0-0.8); MONO % 3.4 % (0.0-5.0); NEUTROPHILS # 13.1 10^3/uL (1.8-7.7); NEUTROPHILS % 93.3 % (36.0-66.0); PLATELET COUNT, AUTOMATED 213 10^3/uL (150-450); RED BLOOD COUNT 3.53 10^6/uL (4.30-6.10); RED CELL DISTRIBUTION WIDTH 13.8 % (11.5-14.5)
[2018-06-07 18:41] LABS: ALBUMIN 2.5 GM/DL (3.2-5.2); ALBUMIN/GLOBULIN RATIO 0.89 (1.00-1.93); ALKALINE PHOSPHATASE 62 U/L (45-117); ALT/SGPT 71 U/L (12-78); ANION GAP 9 MEQ/L (8-16); AST/SGOT 24 U/L (7-37); BILIRUBIN,TOTAL 0.8 MG/DL (0.2-1.0); BLOOD UREA NITROGEN 27 MG/DL (7-18); C REACTIVE PROTEIN QUANTITATIV < 0.30 MG/DL (0.00-0.30); CALCIUM LEVEL 7.7 MG/DL (8.8-10.2); CARBON DIOXIDE LEVEL 24 MEQ/L (21-32); CHLORIDE LEVEL 107 MEQ/L (98-107); CREATININE FOR GFR 0.99 MG/DL (0.70-1.30); GLOMERULAR FILTRATION RATE > 60.0 (>42); GLUCOSE, FASTING 96 MG/DL (70-100); POTASSIUM SERUM 4.4 MEQ/L (3.5-5.1); SODIUM LEVEL 140 MEQ/L (136-145); TOTAL PROTEIN 5.3 GM/DL (6.4-8.2)
[2018-06-07] MEDS: MORPHINE 4 MG/ML 1ML VIAL/SYRINGE (J2270) IV ×2 (19:01→23:16)
[2018-06-07] MEDS: AMPICILLIN SOD/SULBACTAM SOD 3 GM in D5W MINI-BAG PLUS 100 ML IV (21:40)
[2018-06-07] MEDS: SENOKOT S TAB PEG (21:40)
[2018-06-08] MEDS: AMPICILLIN SOD/SULBACTAM SOD 3 GM in D5W MINI-BAG PLUS 100 ML IV ×4 (02:43→20:52)
[2018-06-08] MEDS: MORPHINE 4 MG/ML 1ML VIAL/SYRINGE (J2270) IV ×2 (03:14→06:15)
[2018-06-08 06:19] LABS: HEMATOCRIT 33.4 % (42.0-52.0); HEMOGLOBIN 11.2 g/dl (13.5-17.5); MEAN CORPUSCULAR HEMOGLOBIN 31.5 pg (27.0-33.0); MEAN CORPUSCULAR HGB CONC 33.5 g/dl (32.0-36.5); MEAN CORPUSCULAR VOLUME 94.1 fl (80.0-96.0); PLATELET COUNT, AUTOMATED 196 10^3/uL (150-450); RED BLOOD COUNT 3.55 10^6/uL (4.30-6.10); RED CELL DISTRIBUTION WIDTH 13.8 % (11.5-14.5)
[2018-06-08 06:45] LABS: ANION GAP 10 MEQ/L (8-16); BLOOD UREA NITROGEN 28 MG/DL (7-18); C REACTIVE PROTEIN QUANTITATIV < 0.30 MG/DL (0.00-0.30); CALCIUM LEVEL 7.6 MG/DL (8.8-10.2); CARBON DIOXIDE LEVEL 23 MEQ/L (21-32); CHLORIDE LEVEL 109 MEQ/L (98-107); CREATININE FOR GFR 0.99 MG/DL (0.70-1.30); GLOMERULAR FILTRATION RATE > 60.0 (>42); GLUCOSE, FASTING 96 MG/DL (70-100); SODIUM LEVEL 142 MEQ/L (136-145)
[2018-06-08] MEDS: DRONABINOL 2.5 MG CAP (MARINOL) PEG ×3 (08:00→16:58)
[2018-06-08] MEDS: SENOKOT S TAB PEG ×2 (08:13→20:53)
[2018-06-08] MEDS: ALPRAZolam 0.25 MG TAB GT (08:13)
[2018-06-08] MEDS: predniSONE 50 MG TAB PEG (08:13)
[2018-06-08] MEDS: NORCO, ANEXSIA 5/325MG TABLET (HYDROcodone/ACETAMINOPHEN) GT (08:14)
[2018-06-08] MEDS: MIRALAX *UNIT DOSE* 17GM PACKET PEG (08:30)
[2018-06-08] MEDS: PANTOPRAZOLE 40MG INJ (PROTONIX) (C9113) IV (08:31)
[2018-06-08] MEDS: HEPARIN SOD (PORCINE) 5000 UNITS/ML VIAL SQ ×2 (08:31→20:54)
[2018-06-08] MEDS ORDERED: PILL CRUSHER/CUTTER 1 EACH XX (09:00)
[2018-06-08] MEDS: HYDROMORPHONE HCL 0.5 MG/ 0.5 ML SYRINGE (J1170 PER 1) IV ×4 (10:00→23:48)
[2018-06-09] MEDS: AMPICILLIN SOD/SULBACTAM SOD 3 GM in D5W MINI-BAG PLUS 100 ML IV ×4 (02:26→20:16)
[2018-06-09] MEDS: HYDROMORPHONE HCL 0.5 MG/ 0.5 ML SYRINGE (J1170 PER 1) IV ×2 (04:30→07:30)
[2018-06-09 05:56] LABS: HEMATOCRIT 32.2 % (42.0-52.0); MEAN CORPUSCULAR HEMOGLOBIN 31.8 pg (27.0-33.0); MEAN CORPUSCULAR HGB CONC 34.2 g/dl (32.0-36.5); MEAN CORPUSCULAR VOLUME 93.1 fl (80.0-96.0); PLATELET COUNT, AUTOMATED 185 10^3/uL (150-450); RED BLOOD COUNT 3.46 10^6/uL (4.30-6.10); RED CELL DISTRIBUTION WIDTH 13.8 % (11.5-14.5); WHITE BLOOD COUNT 10.3 10^3/uL (4.0-10.0)
[2018-06-09 06:13] LABS: ANION GAP 7 MEQ/L (8-16); BLOOD UREA NITROGEN 29 MG/DL (7-18); C REACTIVE PROTEIN QUANTITATIV 1.79 MG/DL (0.00-0.30); CALCIUM LEVEL 7.7 MG/DL (8.8-10.2); CARBON DIOXIDE LEVEL 28 MEQ/L (21-32); CHLORIDE LEVEL 105 MEQ/L (98-107); CREATININE FOR GFR 0.92 MG/DL (0.70-1.30); GLOMERULAR FILTRATION RATE > 60.0 (>42); GLUCOSE, FASTING 91 MG/DL (70-100); MAGNESIUM LEVEL 1.8 MG/DL (1.8-2.4); POTASSIUM SERUM 3.9 MEQ/L (3.5-5.1); SODIUM LEVEL 140 MEQ/L (136-145)
[2018-06-09] MEDS: DRONABINOL 2.5 MG CAP (MARINOL) PEG ×3 (08:00→17:31)
[2018-06-09] MEDS: predniSONE 50 MG TAB PEG (08:43)
[2018-06-09] MEDS: SENOKOT S TAB PEG ×2 (08:44→20:16)
[2018-06-09] MEDS: PANTOPRAZOLE 40MG INJ (PROTONIX) (C9113) IV (08:44)
[2018-06-09] MEDS: HEPARIN SOD (PORCINE) 5000 UNITS/ML VIAL SQ ×2 (08:44→20:17)
[2018-06-09] MEDS: MIRALAX *UNIT DOSE* 17GM PACKET PEG (08:44)
[2018-06-09] MEDS: NORCO, ANEXSIA 5/325MG TABLET (HYDROcodone/ACETAMINOPHEN) GT ×4 (09:31→22:47)
[2018-06-10] MEDS: AMPICILLIN SOD/SULBACTAM SOD 3 GM in D5W MINI-BAG PLUS 100 ML IV ×2 (02:33→08:19)
[2018-06-10] MEDS: NORCO, ANEXSIA 5/325MG TABLET (HYDROcodone/ACETAMINOPHEN) GT ×4 (02:58→15:25)
[2018-06-10 06:31] LABS: HEMATOCRIT 32.4 % (42.0-52.0); MEAN CORPUSCULAR HEMOGLOBIN 32.1 pg (27.0-33.0); MEAN CORPUSCULAR VOLUME 94.5 fl (80.0-96.0); PLATELET COUNT, AUTOMATED 171 10^3/uL (150-450); RED BLOOD COUNT 3.43 10^6/uL (4.30-6.10); RED CELL DISTRIBUTION WIDTH 13.9 % (11.5-14.5); WHITE BLOOD COUNT 9.1 10^3/uL (4.0-10.0)
[2018-06-10 06:48] LABS: ANION GAP 3 MEQ/L (8-16); BLOOD UREA NITROGEN 29 MG/DL (7-18); C REACTIVE PROTEIN QUANTITATIV 1.39 MG/DL (0.00-0.30); CALCIUM LEVEL 7.9 MG/DL (8.8-10.2); CARBON DIOXIDE LEVEL 30 MEQ/L (21-32); CHLORIDE LEVEL 105 MEQ/L (98-107); CREATININE FOR GFR 0.94 MG/DL (0.70-1.30); GLOMERULAR FILTRATION RATE > 60.0 (>42); GLUCOSE, FASTING 95 MG/DL (70-100); MAGNESIUM LEVEL 1.8 MG/DL (1.8-2.4); POTASSIUM SERUM 3.9 MEQ/L (3.5-5.1); SODIUM LEVEL 138 MEQ/L (136-145)
[2018-06-10] MEDS: predniSONE 50 MG TAB PEG (08:20)
[2018-06-10] MEDS: PANTOPRAZOLE 40MG INJ (PROTONIX) (C9113) IV (08:20)
[2018-06-10] MEDS: HEPARIN SOD (PORCINE) 5000 UNITS/ML VIAL SQ (08:20)
[2018-06-10] MEDS: SENOKOT S TAB PEG (08:20)
[2018-06-10] MEDS: MIRALAX *UNIT DOSE* 17GM PACKET PEG (08:21)
[2018-06-10] MEDS: DRONABINOL 2.5 MG CAP (MARINOL) PEG ×2 (08:21→11:55)
== END 2018-06-10 15:56 | disposition home or self-care (01) | DRG 155 ==
LOC: M MSPAV 17:41
DX: K11.21 Acute sialoadenitis (principal); E46 Unspecified protein-calorie malnutrition; L03.211 Cellulitis of face; L03.221 Cellulitis of neck; I82.C22 Chronic embolism and thrombosis of left internal jugular vein; Z68.21 Body mass index [BMI] 21.0-21.9, adult; Z85.810 Personal history of malignant neoplasm of tongue; Z79.899 Other long term (current) drug therapy; Z88.8 Allergy status to other drugs, medicaments and biological substances; K21.9 Gastro-esophageal reflux disease without esophagitis; Z93.1 Gastrostomy status; D64.9 Anemia, unspecified

== ENCOUNTER → 2018-06-12 | Outpatient (REF) | payer MEDICARE ==
[2018-06-12 13:26] LABS: C REACTIVE PROTEIN QUANTITATIV 4.02 MG/DL (0.00-0.30)
== END ==
LOC: M LAB REF 12:37
DX: C02.2 Malignant neoplasm of ventral surface of tongue (principal)
CPT/HCPCS: 86140

== ENCOUNTER 2018-06-28 06:06 | Emergency (ER) | payer MEDICARE ==
[2018-06-28 07:31] LABS: BASO % 0.3 % (0.0-1.0); EOS % 0.3 % (0.0-3.0); HEMATOCRIT 33.9 % (42.0-52.0); HEMOGLOBIN 11.1 g/dl (13.5-17.5); IMMATURE GRANULOCYTE % 1.9 % (0-3.0); LYMPH # 0.8 10^3/uL (1.5-4.5); LYMPH % 10.4 % (24.0-44.0); MEAN CORPUSCULAR HGB CONC 32.7 g/dl (32.0-36.5); MEAN CORPUSCULAR VOLUME 97.7 fl (80.0-96.0); MONO # 0.8 10^3/uL (0.0-0.8); MONO % 11.7 % (0.0-5.0); NEUTROPHILS # 5.4 10^3/uL (1.8-7.7); NEUTROPHILS % 75.4 % (36.0-66.0); PLATELET COUNT, AUTOMATED 375 10^3/uL (150-450); RED BLOOD COUNT 3.47 10^6/uL (4.30-6.10); RED CELL DISTRIBUTION WIDTH 14.6 % (11.5-14.5); WHITE BLOOD COUNT 7.2 10^3/uL (4.0-10.0)
[2018-06-28 07:40] LABS: ALBUMIN 2.8 GM/DL (3.2-5.2); ALKALINE PHOSPHATASE 94 U/L (45-117); ALT/SGPT 45 U/L (12-78); ANION GAP 8 MEQ/L (8-16); AST/SGOT 15 U/L (7-37); BILIRUBIN,DIRECT 0.1 MG/DL (0.0-0.2); BILIRUBIN,TOTAL 0.3 MG/DL (0.2-1.0); BLOOD UREA NITROGEN 22 MG/DL (7-18); CALCIUM LEVEL 8.9 MG/DL (8.8-10.2); CARBON DIOXIDE LEVEL 28 MEQ/L (21-32); CHLORIDE LEVEL 102 MEQ/L (98-107); CREATININE FOR GFR 0.89 MG/DL (0.70-1.30); GLOMERULAR FILTRATION RATE > 60.0 (>42); GLUCOSE, FASTING 101 MG/DL (70-100); SODIUM LEVEL 138 MEQ/L (136-145); TOTAL PROTEIN 6.8 GM/DL (6.4-8.2)
== END 2018-06-28 11:24 | disposition home or self-care (01) ==
LOC: M ED 06:06
DX: K11.7 Disturbances of salivary secretion (principal); R13.10 Dysphagia, unspecified; K21.9 Gastro-esophageal reflux disease without esophagitis; D64.9 Anemia, unspecified; Z85.89 Personal history of malignant neoplasm of other organs and systems; Z79.899 Other long term (current) drug therapy; Z88.6 Allergy status to analgesic agent; Z88.8 Allergy status to other drugs, medicaments and biological substances; Z87.891 Personal history of nicotine dependence
CPT/HCPCS: 70110

== ENCOUNTER → 2018-06-30 | Outpatient (CLI) | payer MEDICARE | LOC: M PAIN 15:15 | DX: L90.5 Scar conditions and fibrosis of skin (principal); M54.2 Cervicalgia; G89.28 Other chronic postprocedural pain; I10 Essential (primary) hypertension; K21.9 Gastro-esophageal reflux disease without esophagitis; Z79.899 Other long term (current) drug therapy; Z88.8 Allergy status to other drugs, medicaments and biological substances; Z85.810 Personal history of malignant neoplasm of tongue; Z87.820 Personal history of traumatic brain injury; Z90.89 Acquired absence of other organs; Z98.890 Other specified postprocedural states; Z87.891 Personal history of nicotine dependence | CPT/HCPCS: G0463 ==

== ENCOUNTER → 2018-07-03 | Outpatient (REF) | payer MEDICARE | LOC: M LAB REF 12:23 | DX: S11.8 Open wound of other specified parts of neck (principal); X58.XXXS Exposure to other specified factors, sequela; Y92.9 Unspecified place or not applicable | CPT/HCPCS: 87186 ==

== ENCOUNTER → 2018-07-07 | Outpatient (CLI) | payer MEDICARE | LOC: M RAD 10:42 | DX: C02.2 Malignant neoplasm of ventral surface of tongue (principal) | CPT/HCPCS: 70110 ==

== ENCOUNTER → 2018-07-25 | Outpatient (REF) | payer MEDICARE | LOC: M LAB REF 18:06 | DX: C01 Malignant neoplasm of base of tongue (principal) | CPT/HCPCS: 88108 ==

== ENCOUNTER 2018-07-30 09:23 | Emergency (ER) | payer MEDICARE ==
[2018-07-30] MEDS ORDERED: FENTANYL REMOVAL DOCUMENTATION MISC XX (11:15)
[2018-07-30] MEDS: fentaNYL 50 MCG/HR PATCH TOP (11:51)
== END 2018-07-30 12:44 | disposition home or self-care (01) ==
LOC: M ED 09:23
DX: S00.83XA Contusion of other part of head, initial encounter (principal); C14.0 Malignant neoplasm of pharynx, unspecified; W19.XXXA Unspecified fall, initial encounter; Y92.099 Unspecified place in other non-institutional residence as the place of occurrence of the external cause; Y93.89 Activity, other specified; Y99.9 Unspecified external cause status; Z79.899 Other long term (current) drug therapy; Z88.8 Allergy status to other drugs, medicaments and biological substances
CPT/HCPCS: 70450